=== PATIENT | male | born 1965 | race Caucasian/White ===

== ENCOUNTER 2018-09-27 10:22 | Day surgery (SDC) | payer OTHER ==
[2018-09-26 16:48] VITALS: BMI 26.2
[~2018-09-27] VITALS: Ht 193 cm; Wt 96.9 kg
[2018-09-27] VITALS (16 sets, daily range): BP systolic 106–148; BP diastolic 61–91; PULSE 60–74; RESP 10–50; Ht 193 cm; Wt 96.9 kg
--- NOTE | 2018-09-27 07:19 | HPN ---
Date/Time of Note Date/Time of Note DATE: 09/27/18 TIME: 07:18 Interval H&P Admission Note Pt. seen H&P reviewed: No system changes YORDAN BONILLA MD Sep 27, 2018 07:19
[~2018-09-27 10:22] MED LIST: HYDR-4011 PO
[2018-09-27] MEDS ORDERED: LACTATED RINGER'S 1,000 ML IV SCH (12:00)
[2018-09-27] MEDS ORDERED: ROPIVACAINE 0.5 % 30 ML VIAL ONE (12:25)
[2018-09-27] MEDS ORDERED: NEOMYC/POLYMYX/BACIT 30 GM OINT ONE (12:25)
--- NOTE | 2018-09-27 12:55 | PREAC ---
Date/Time of Note Date/Time of Note DATE: 09/27/18 TIME: 12:54 Anesthesia Eval and Record Evaluation Time Pre-Procedure Interview DATE: 09/27/18 TIME: 12:54 Age 52 Sex male NPO: 8 hrs Preoperative diagnosis LEFT KNEE MED MENISCUS COMPLEX TEAR Planned procedure LEFT KNEE ARTHROSCOPY, MED, LAT MENISCUS REPAIR, CHONDROPLASTY Past Medical History Past Medical History: None Surgery & Anesthesia Issues No known issue Meds Anticoagulation: No Beta Eugenie within 24 hr: No Reason Beta Eugenie not given: Pt. not on B-Eugenie Reported Medications Hydrocodone/Acetaminophen ([place] 5-325 Tablet) 1 Each Tablet, 1 TAB PO Q6 PRN for PAIN LEVEL 6-10, TAB 09/27/18 Current Medications Lactated Ringer's 1,000 ml @ 25 mls/hr Q24H IV ; Start 09/27/18 at 12:00 Meds reviewed: Yes Allergies Coded Allergies: Penicillins (Verified Allergy, Severe, 09/27/18) Allergies Reviewed: Yes Labs/Studies Labs Reviewed: Reviewed by anesthesiologist test: N/A Studies: ECG (SR), CXR (NL) Pre-procedure Exam Last vitals Vital Signs Date Temp Pulse Resp B/P (MAP) Pulse Ox O2 O2 Flow FiO2 Time Delivery Rate 09/27/18 98.2 68 16 147/85 97 Room Air 11:46 (105) Airway: Adequate mouth opening Mallampati: Mallampati I Teeth: Normal Lung: Normal Heart: Normal ASA Physical Status ASA physical status: 1 Emergency: None Planned Anesthetic General/MAC: LMA Pre-operative Attestations Prior to commencing anesthesia and surgery, the patient was re-evaluated, there was verification of: *The patient's identity *The results of appropriate recent lab work and preoperative vital signs *The above evaluation not changing prior to induction *Anesthetic plan, risk benefits, alternative and complications discussed with patient/family; questions answered; patient/family understands, accepts and wishes to proceed. SHAY STRINGER MD Sep 27, 2018 12:55
[2018-09-27] MEDS ORDERED: CEFAZOLIN 1 GM INJ ONE (13:15)
[2018-09-27] MEDS ORDERED: PROPOFOL 20 ML ONE ×3 (13:16→14:30)
[2018-09-27] MEDS ORDERED: METOCLOPRAMIDE 10 MG INJ ONE (13:16)
[2018-09-27] MEDS ORDERED: FENTAnyl 50 MCG/ML VIAL ONE (13:16)
[2018-09-27] MEDS ORDERED: MIDAZOLAM 1 MG/ML 2 ML INJ ONE (13:16)
[2018-09-27] MEDS ORDERED: HYDROmorphONE 2 MG/ML SYG ONE (13:29)
[2018-09-27] MEDS ORDERED: ONDANSETRON 4 MG INJ IV PRN (13:30)
[2018-09-27] MEDS ORDERED: HYDROmorphONE 1 MG/5 ML IV SYRINGE IV PRN ×3 (13:30)
[2018-09-27] MEDS ORDERED: MEPERIDINE 25 MG INJ IV PRN (13:30)
[2018-09-27] MEDS ORDERED: FENTAnyl 50 MCG/ML VIAL IV PRN ×3 (13:30)
[2018-09-27] MEDS ORDERED: ONDANSETRON 4 MG INJ ONE (13:30)
[2018-09-27] MEDS ORDERED: OXYCODONE/ACETAMINOPHEN (5/325) TAB PO PRN ×2 (13:30)
[2018-09-27] MEDS ORDERED: DIPHENHYDRAMINE 50 MG INJ IV PRN (13:30)
[2018-09-27] MEDS ORDERED: KETOROLAC 30 MG INJ ONE (13:35)
--- NOTE | 2018-09-27 17:27 | OPR ---
Date/Time of Note Date/Time of Note DATE: 09/27/18 TIME: 17:24 Operative Report Procedure Date: Sep 27, 2018 Preoperative Diagnosis LEFT KNEE MEDIAL AND LATERAL MENISCAL TEAR Postoperative Diagnosis LEFT KNEE MEDIAL AND LATERAL MENISCAL TEAR Operation/Procedure Performed Left knee arthroscopy with medial meniscal repair Left knee arthroscopy with partial lateral meniscectomy Surgeon YORDAN BONILLA MD Environmental Protection Geologist Ihsan Hess DO Anesthesia Type: general, other (local) Anesthesiologist: SHAY STRINGER MD Estimated Blood Loss: minimal Transfusion none Specimen none Grafts/Implants [place] AND [place] FAST T FIX Complications none Pt Condition Post Procedure: stable Disposition: PACU Indications INDICATIONS: Patient is a 52-year-old male with ongoing Left knee pain. The patient has complained of having catching, clicking and locking symptoms over the medial aspect of the knee with no relief with physical therapy or anti- inflammatory. Patient has decided to proceed with surgery. RISK NOTE: Patient was explained the risks and benefits of the surgery in the patients [place] language, including not limited to infection, bleeding, loss of limb, loss of life, need for future surgery, risk of anesthesia, risk of injury to the blood vessels and nerves, ligaments or tendons, and risk of deep vein thrombosis. Patient understood these risks and wished to proceed with the surgery. Procedure Description The correct operative site was noted and marked in the preoperative holding area. The patient was then brought back into the operative theater, placed supine on the operative table. Left knee was examined under anesthesia. Range of motion was 0-120. There is no varus or valgus or anterior or posterior instability. There is crepitus noticed at the patellofemoral joint. Tourniquet was then placed on the operative extremity thigh non-sterilely. Patient was then given preoperative antibiotics and then prepped and draped in normal sterile fashion. A timeout was taken and all parties in the room agreed it was the correct patient, correct extremity and correct procedure. Standard anterior lateral portal was created and the knee joint was entered with a blunt tipped trocar, followed by 30 arthroscope. Inflow was achieved with a pump and the pressure maintained at approximately 50 mmHg. A routine arthroscopic surgery was performed. Suprapatella pouch was unremarkable. The undersurface of the patella showed grade 1 the same to the last 20 meniscal chondromalacia The medial and lateral gutters were visualized. There were no loose bodies seen. There is an inflamed hypertrophic plica noted in the anterior and super ior medial aspect of the knee. The popliteus hiatus was entered and was normal. Lateral compartment was entered and grade 1 chondromalacia was seen on the lateral tibial plateau and femoral condyle. Scope was then brought into the intercondylar notch and an anteromedial portal was made. Shaver was brought into the knee and small amount of fat pad and scar tissue was initially gently debrided. The anterior cruciate ligament was intact and probed. The knee was brought into a valgus position and the medial compartment was entered. The articular surface of the medial femoral condyle and medial tibial plateau revealed was GRADE 1/2 chondromalacia. There was a posterior ho.rn red/red zone horizontal meniscal tear that probed then rasped then repaired with Fast T Fix. The motorized shaver and basket biters were used to smooth the remaining meniscal rim, with care to maintain the peripheral meniscal rim. A probe was introduced and this was carefully probed and was found to be stable. Chondroplasty was then carried out along the weightbearing aspect of the medial femoral condyle, medial tibial plateau, taking care to remove only loose articular cartilage debris and preserve functional articular cartilage. The lateral compartment was reentered and there was a degenerative tearing along the inner rim that was treated with both a basket biter and a shaver to a firm and stable rim. the loose chondral debris was debrided with motorized shaver. Attention was then directed back to the patella femoral joint and a chondroplasty was carried out along the weightbearing aspect of the trochlea and undersurface of the patella to again remove loose debris and maintain functional active articular cartilage. The knee was then irrigated with additional 2 L of lactated Ringers solution. Excess fluid was then drained. Range of motion was then attempted showing 0- 125 degrees of motion The portal sites were closed with 4-0 Monocryl and Steri-Strips and dressed with Xeroform and triple antibiotic ointment. The knee was then injected with 20 cc of 0.5% plain ropivacaine. A dry sterile dressing was then applied, followed by a compressive bulky soft bandage and an MAKAYLA Wrap and into a T ROM brace. At the completion of the surgery patient had palpable pulses, soft arms and br isk cap refill. The patient tolerated the procedure well and was taken to the PACU without any complications. All sponge and needle counts were correct. Patient will begin pain medicine and 48 hours of antibiotics as well as aspirin 81 mg for the duration of 4 weeks postoperatively. Environmental Protection Geologist surgeon note: An medical assistant instructor orthopedic surgeon was needed for this case to assist with positioning of the limb during repair of the injury as well as assisting in reduction of the fracture. Without a qualified orthopedic surgical forceps fabricator in this case the case would be significantly more complex and longer. YORDAN BONILLA MD Sep 27, 2018 17:27
[2018-09-27] MEDS ORDERED: morphine 2 MG INJ IV PRN (17:30)
[2018-09-27] MEDS ORDERED: KETOROLAC 30 MG INJ IV SCH (17:30)
--- NOTE | 2018-09-28 08:22 | PAC ---
Date/Time of Note Date/Time of Note DATE: 09/28/18 TIME: 08:21 Post-Anesthesia Notes Post-Anesthesia Note Last documented vital signs Vital Signs Date Temp Pulse Resp B/P (MAP) Pulse Ox O2 O2 Flow FiO2 Time Delivery Rate 09/27/18 97.0 63 18 138/85 95 Room Air 16:01 (102) 09/27/18 8.0 14:58 Activity: WNL Respiratory function: WNL Cardiovascular function: WNL Mental status: Baseline Pain reasonably controlled: Yes Hydration appropriate: Yes Nausea/Vomiting absent: No SHAY STRINGER MD Sep 28, 2018 08:22
== END 2018-09-27 16:25 | disposition home or self-care (01) ==
LOC: SDS 10:22
PROVIDERS: ATTEND Orthopaedic Surgery
DX: S83.272D Complex tear of lateral meniscus, current injury, left knee, subsequent encounter (principal); S83.232D Complex tear of medial meniscus, current injury, left knee, subsequent encounter; X58.XXXD Exposure to other specified factors, subsequent encounter
CPT/HCPCS: 29880; 82306; C1713; J0690; J1170; J1885; J2175; J2250; J2405; J2765; J2795; J3010